=== PATIENT | female | born 2000 | race Caucasian/White ===

== ENCOUNTER 2020-04-13 18:05 | Inpatient (IN) | payer OTHER, SELFPAY ==
[2020-04-13] VITALS (8 sets, daily range): BP systolic 103–141; BP diastolic 55–66; PULSE 67–85; TEMP 36.3–37.2; O2SAT 92–98; BMI 27.0
[2020-04-13 18:01] LABS: ROM Internal Control Test YES-OK TO RESULT pt. (Internal QC)
[2020-04-13 18:02] LABS: ROM Patient Test POSITIVE (Negative)
[2020-04-13] MEDS: Lactated Ringers 1,000 ML 50 ML IV (18:33)
[2020-04-13 18:53] LABS: Absolute Neutrophil Count 11.1 X10^3/uL (2.0-7.7); Basophil# 0.05 X10^3/uL; Basophil% 0.3 % (0-1); Eosinophil# 0.14 X10^3/uL; Hematocrit 39.3 % (37-47); Hemoglobin 12.9 g/dL (12.0-15.0); Lymphocyte % 14.5 % (19-41); Mean Corp Hgb Conc 32.8 g/dL (32-36); Mean Corpuscular Hgb 29.1 pg (27.0-32.0); Mean Corpuscular Volume 88.7 fL (81-99); Mean Platelet Vol. 10.7 fl (6.2-12.0); Monocyte# 0.85 X10^3/uL; Monocyte% 5.9 % (0-10); NRBC Flagged by Analyzer 0 % (0-5); Neutrophil # 11.07 X10^3/uL (2.7-7.7); Neutrophil % 76.6 % (47-70); Platelet Count 248 K/mm3 (150-450); RBC Distribution Width CV 12.3 % (11.6-14.6); RBC Distribution Width SD 40.2 fl (35.1-43.9); Red Blood Count 4.43 M/mm3 (4.2-5.4); White Blood Count 14.5 K/mm3 (4.4-11.0)
[2020-04-13] MEDS: Oxytocin 30 units/NS 500 ml 30 UNITS/500 ML IV.SOLN IV (19:19)
--- NOTE | 2020-04-13 19:32 | HP.PCM_ITS ---
- Problem List (1) PROM (premature rupture of membranes) Status: Acute (2) Rh negative state in antepartum period Status: Acute (3) History of depression Status: Acute (4) History of asthma Status: Acute History Date of Admission: 04/13/20 Final SVETLANA: 04/25/20 Gestational age: 38 Weeks and 2 Days History of this : This is a 20 year-old, G [1], P [0], at 38 weeks gestational age. Leakage of fluid since 0900 this am. Was unsure if her water broke but continued to have leakage throughout the day. Triage in labor and delivery and ROM plus positive. No contractions. Decision for admission. course uncomplicated. Allergies No Known Allergies Allergy (Verified 04/13/20 17:03) Home Medications: Home Medications Omeprazole [Prilosec] 10 mg PO DAILY 04/13/20 Vit No.130/Iron/Folic [ Tablet] 1 ea PO DAILY 04/13/20 Smoking Status: Never smoker Alcohol: None Number of Fetus(es): 1 NST - FHR Rate Baby A Baseline: 135 Variability:: Moderate Accelerations:: 15 x 15 Decelerations:: None FHR Category:: Category I Uterine Activity:: None History Past Pregnancies: Past Pregnancies Delivery Date Name GA/ Weeks Outcome Route Wt Sex Labor Length Anesthesia Delivery Location Provider FOB Labs: Mom's Problem List Problem Status Onset Code PROM (premature rupture of membranes) Acute O42.90 Rh negative state in antepartum period Acute O26.899, Z67.91 History of depression Acute Z86.59 History of asthma Acute Z87.09 Mom's Labs & Results 04/13/20 04/13/20 04/13/20 17:15 18:33 18:33 WBC 14.5 H RBC 4.43 Hgb 12.9 Hct 39.3 MCV 88.7 MCH 29.1 MCHC 32.8 RDW Std Deviation 40.2 RDW Coeff of Dale 12.3 Plt Count 248 MPV 10.7 Immature Gran % (Auto) 1.700 H Neut % (Auto) 76.6 H Lymph % (Auto) 14.5 L Garza % (Auto) 5.9 Eos % (Auto) 1.0 Baso % (Auto) 0.3 Absolute Neuts (auto) 11.1 H Absolute Lymphs (auto) 2.10 Nucleated RBC % 0 Vag Amniotic Fld Detect POSITIVE H Blood Type Pending Antibody Screen Pending Course Did the patient receive Yes care? Labs Blood Type: O RH: NEGATIVE RPR/VDRL/Syphilis Nonreactive Rubella status Immune HbSAg Negative Date Done: 02/04/20 Chlamydia Negative Gonorrhea Negative HIV/AIDS Non-Reactive Group B Strep: Negative Current Obstetrical History Gestational Diabetes No Incompetent Cervix No Infertility No IUGR No Macrosomia No Hypertension/Pre-eclampsia No Placenta Previa/Abruption No PTL/PROM No Uterine anomaly No Oligohydramnios No Polyhydramnios No Multiple gestation No Past Medical History Asthma No Diabetes No Hypertension No Heart disease No Mitral valve prolapse No Neurologic/Seizure disorder/ No Migraines Kidney disease No Liver disease No Varicosities No Clotting disorders/Hx of DVT No Thyroid Dysfunction No Other medical diseases No Psychiatric disorders Yes: depression and anxiety Major trauma No Abnormal PAP smear No Sleep apnea No Mammogram in the last 2 years No Medications Taken During Dose/Freq.: [zofran] prn Reason for taking medication [ 1st trimester zofran] Social History Marital Status: SINGLE Alleged father Don Hx Smoking No Smoking Status Never smoker How long have you used na substances (years)? Expected Infant Delivery Method: Spontaneous Vaginal Review of Systems Constitutional: Denies: Chills, Fever, Weight Change HEENT: Denies: Head Aches, Sinus Congestion, Sinus Drainage Cardiovascular: Denies: Chest Pain, Palpitations Respiratory: Denies: Cough, Shortness of breath at rest, Sputum production Gastrointestinal: Denies: Abdominal Pain, Nausea, Vomiting Genitourinary: Denies: Dysuria Musculoskeletal: Denies: Joint Pain, Joint Tenderness Skin: Denies: Rash, Wounds Neurological: Denies: Numbness, Tingling, Focal weakness Psychiatric: Denies: Anxiety, Depression, Homicidal Ideations, Suicidal Ideations Hematologic/ Lymphatic: Denies: Easy Bruising, Easy Bleeding Physical Exam Vitals: Vital Signs Temp Pulse BP Pulse Ox 97.9 F 78 141/63 H 98 04/13/20 17:23 04/13/20 19:18 04/13/20 19:18 04/13/20 17:23 Cervix Dilation (cm): 1.5 - Per RN Station: -2 Effacement (%): 60 - Posterior Assessment/Plan All Active Problems PROM (premature rupture of membranes) (Acute) Rh negative state in antepartum period (Acute) History of depression (Acute) History of asthma (Acute) This is a 20 year-old, G [1], P [0], at 38 weeks gestational age. A:Premature Rupture of Membranes at term Category 1 FHT P: 1) Admit to labor and delivery 2) Pitocin augmentation due to no contractions since ROM at 0900. 3) Planning epidural for pain management 4) IV, routine labs 5) O negative 6) collaborative physician and notified of patient status. 7) GBS negative.
[2020-04-13] MEDS: Ondansetron 4 MG/2 ML Vial IV (23:13)
[2020-04-13] MEDS: 0.9% Saline Lock 10 ML Syringe IV (23:16)
[2020-04-14] VITALS (46 sets, daily range): BP systolic 99–125; BP diastolic 55–70; PULSE 50–109; RESP 16–18; TEMP 36.2–37.5; O2SAT 97–100
[2020-04-14] MEDS: Lactated Ringers 500 ML 999 ML IV (01:25)
[2020-04-14] MEDS: fentaNYL-bupivacaine (epidural) 100 ML BAG EPIDURAL ×2 (02:30→06:40)
[2020-04-14] MEDS: Lactated Ringers 1,000 ML 200 ML IV ×2 (05:39→10:12)
[2020-04-14] MEDS: Ondansetron 4 MG/2 ML Vial IV (06:10)
[2020-04-14] MEDS: 0.9% Saline Lock 10 ML Syringe IV (06:11)
[2020-04-14] MEDS: proCHLORPERazine 10 MG/2 ML Vial IV (07:51)
[2020-04-14] MEDS: Oxytocin 30 units/NS 500 ml 30 UNITS/500 ML IV.SOLN 334 UNITS IV (11:28)
--- NOTE | 2020-04-14 11:38 | PCM.OPRPT ---
Vaginal Delivery Maternal Presentation: Medically Indicated Induction Method of Induction: Pitocin Medical Reason for Induction: Premature Rupture of Membranes Amniotic Membrane Rupture Type: Spontaneous at home Amniotic Fluid Description: Clear Final SVETLANA: 04/25/20 Final SVETLANA Source: US <20 weeks Gestational age: 38 Weeks and 3 Days Date of Procedure: 04/14/20 Pre-Operative Diagnosis: labor Post-Operative Diagnosis: same Surgery/ Procedure Performed: Spontaneous Vaginal Delivery Type of Anesthesia: Epidural Description of Procedure: A vigorous [female] was delivered MATTHEW over intact perineum. The remainder the was delivered with maternal pushing and gentle traction only in less than 15 seconds. The Pitocin infusion was initiated for active management of the third stage. The cord was clamped and cut [after 1 minute]. The infant was attended to by the waiting nursing staff. The placenta was delivered spontaneously and intact. The cervix and vagina were intact. The first-degree vaginal laceration was repaired with 2 interrupted 3-0 Vicryl Rapide sutures and was hemostatic. Sponge and needle counts were correct. A vaginal sweep was completed by me. Time of delivery was 11:26 AM Presentation: MATTHEW Placental Delivery Description: Spontaneous Placenta Disposition: [facility] Cord Vessel Description: 3 Vessels Cord Entanglement: None Drain: Farmer to straight drain - removed during Estimated Blood Loss: 200 Infant A gender: Female - Ghazala (1 minute): 9 (5 minute): 9 Episiotomy Description: None Laceration: 1st degree - vaginal Medications given after delivery: IV Pitocin Complications: None
[2020-04-14] MEDS: Ibuprofen 600 MG Tablet PO (19:59)
[2020-04-15 00:50] VITALS: BP 126/68; PULSE 95; RESP 16; TEMP 36.2
[2020-04-15 04:00] VITALS: BP 122/74; PULSE 91; RESP 14; TEMP 36.5
[2020-04-15] MEDS: Ibuprofen 600 MG Tablet PO ×2 (05:20→13:54)
--- NOTE | 2020-04-15 08:26 | PN.OBGYN_ITS ---
Patient Problems: Active and Suspected Problems PROM (premature rupture of membranes) (Acute) Rh negative state in antepartum period (Acute) History of depression (Acute) History of asthma (Acute) Subjective: Patient is doing well. Pain controlled. Ambulating voiding without difficulty. Tolerating regular diet without nausea or vomiting. Lochia normal. Breast- feeding without any complaints. Denies lightheadedness, dizziness, chest pain, shortness of breath, leg pain. She wishes to go home today. - Physical Exam Vitals/I&O's: Vital Signs Temp Pulse Resp BP Pulse Ox 97.7 F L 91 14 122/74 H 97 04/15/20 04:00 04/15/20 04:00 04/15/20 04:00 04/15/20 04:00 04/14/20 16:50 Oxygen Delivery Method Room Air Weight: 162 lb 7.691 oz Body Mass Index (BMI) 27.0 Intake and Output for Last 24 Hours 04/13/20 04/14/20 04/15/20 23:59 23:59 23:59 Intake Total 7.46 / 257.46 3896.33 / 3896.33 Output Total 2175 / 2175 Balance 7.46 / -342.54 1721.33 / 1721.33 General: Alert, No apparent distress HEENT: Atraumatic Abdomen: Soft, Non-Distended Extremities: No edema Neurological: Neuro grossly intact Psych/Mental Status: Normal Affect, Appropriate Current Medications Acetaminophen (Tylenol) 1,000 mg PO Q8H PRN PRN PRN Reason: Pain Score 1-3/10 Bisacodyl (Dulcolax) 10 mg RECTAL UD PRN PRN Reason: If no BM Dibucaine (Dibucaine) 1 applic TOPICAL TID PRN PRN; Protocol PRN Reason: Discomfort Hydrocortisone (Hytone) 1 applic TOPICAL TID PRN PRN; Protocol PRN Reason: Discomfort Ibuprofen (Motrin) 600 mg PO Q6H PRN PRN PRN Reason: Pain Score 1-3/10 Last Admin: 04/15/20 05:20 Dose: 600 mg Documented by: Methylergonovine Maleate (Methergine) 0.2 mg IM X1 PRN PRN Reason: Excess bleeding/uterine atony Ondansetron HCl (Zofran) 4 mg IV Q4H PRN PRN PRN Reason: Nausea Prochlorperazine Edisylate (Compazine Iv) 10 mg IV Q6H PRN PRN PRN Reason: NAUSEA/VOMITING Senna/Docusate Sodium (Senokot-S, Kristine-Colace) 1 - 2 tablet PO DAILY PRN PRN PRN Reason: Constipation Simethicone (Mylicon) 80 mg PO PCHS PRN PRN Reason: Indigestion/Stomach pain Sodium Chloride () 5 - 15 ml IV UD PRN PRN Reason: SALINE FLUSH Medical Necessity - Tobacco Use Smoking Status: Never smoker Assessment/Plan All Active Problems PROM (premature rupture of membranes) (Acute) Rh negative state in antepartum period (Acute) History of depression (Acute) History of asthma (Acute) day 1 after vaginal delivery. Patient is doing well and desires to go home today. Discharge instructions reviewed.
--- NOTE | 2020-04-15 08:27 | DCINST_ITS ---
Discharge Diet: No Restrictions Discharge Activity: May Shower, May Take a Tub Bath May resume sexual activity in: 6 weeks Ice area for (Minutes): 15 Weight Bearing Status: Weight bearing as tolerated Lifting Restrictions: Nothing heavier than baby for 4 weeks Call your doctor if you observe: Fever of 101 or Higher, Inability to urinate, Inability to have a bowel movement, Using more than one pad per hour, Shortness of breath, Fainting spells, Swelling in the ankles, Chest pain, Increased palpitations (irregular heartbeat), Calf discomfort, Uncontrolled pain Additional Instructions: If you experience any of the following, contact your healthcare provider. * Bleeding that soaks a pad every hour for 2 hours * Fever 100.4 or higher * Unrelieved incision or abdominal pain * Swelling, redness, discharge or bleeding from your incision or episiotomy site * Your incision begins to separate * Problems urinating (including inability to urinate or burning while u rinating). * Visual changes * Severe headache * Flu-like symptoms * Pain or redness in one of both of your breasts * Pain, warmth, tenderness or swelling in your legs, especially the calf area * Frequent nausea and vomiting * Symptoms of depression or anxiety If you experience any of the following, call 911 or go to the nearest Emergency Room. * Chest pain * Problems breathing * Seizure activity * Partial or complete paralysis of a body part, slurred speech, weakness or drooping of the face, or a sudden inability to walk or hold your balance Allergies/Adverse Reactions: Allergies No Known Allergies Allergy (Verified 04/13/20 17:03) Medications to take at Discharge Omeprazole [Prilosec] 10 mg PO DAILY 04/13/20 Vit No.130/Iron/Folic [ Tablet] 1 ea PO DAILY 04/13/20 When: 1 week and 6 weeks Primary Care Physician: Helen Herring PA-C [Primary Care Provider] - Test Results: Test results from this visit will be discussed in further detail at your follow- up appointment, if applicable.
[2020-04-15 08:45] VITALS: BP 123/67; PULSE 71; RESP 16; TEMP 36.4; O2SAT 97
[2020-04-15 10:26] VITALS: BP 117/58; PULSE 74; RESP 16; TEMP 36.4
[2020-04-15 12:14] VITALS: BP 106/64; PULSE 75; RESP 18; TEMP 36.2
== END 2020-04-15 15:20 | disposition home or self-care (01) | DRG 806 ==
LOC: OBT 18:09 → WP 18:09
PROVIDERS: Advanced Practice Midwife; Admitting Provider Obstetrics & Gynecology; PCP Family Medicine; Referring Provider Obstetrics & Gynecology; Visit Provider Obstetrics & Gynecology
DX: O42.92 Full-term premature rupture of membranes, unspecified as to length of time between rupture and onset of labor (principal); O36.0130 Maternal care for anti-D [Rh] antibodies, third trimester, not applicable or unspecified; Z37.0 Single live birth; O70.0 First degree perineal laceration during delivery; Z3A.38 38 weeks gestation of pregnancy; Z86.59 Personal history of other mental and behavioral disorders; Z87.09 Personal history of other diseases of the respiratory system
CPT/HCPCS: 59025; 59050; 84112; 85025; 86850; 86900; 86901; 99218; J7120; A4216; G0378; J2405